=== PATIENT | female | born 1965 | race Two or more races ===

== ENCOUNTER → 2024-08-28 | Outpatient (CLI) | payer SELFPAY ==
[2024-08-28 14:25] LABS: PTHIN 4 pg/mL (11-61)
[2024-08-28 14:43] LABS: Cholesterol 181 mg/dL (<=200); High Density Lipoprotein 50 mg/dL; Low Density Lipoprotein Calc. 121 mg/dL; Thyroid Stim Hormone (TSH) 0.824 uIU/mL (0.300-4.200); Triglycerides 54 mg/dL; Very Low Density Lipoprotein 11 mg/dL (5-40); Vitamin D,25 Hydroxy 32.3 ng/mL (30-100); cholesterol:hdl ratio screen 3.65
[2024-08-28 14:50] LABS: ALB/GLOB Ratio -4.7 RATIO (0.9-2.4); AST(SGOT) 24 U/L (<=31); Alanine Aminotransfer ALT/SGPT 21 U/L (<=34); Alkaline Phosphatase 43 U/L (35-104); Anion Gap 12 (5-15); BUN 29 mg/dL (4-19); Calcium,Total 9.1 mg/dL (7.6-11.0); Chloride 101 mmol/L (98-108); Creatinine, Serum 1.54 mg/dL (0.70-1.20); EST Glomerular Filtration Rate 38 (>60); Globulin -0.9 g/dL (2.2-4.2); Protein, Total 3.2 g/dL (5.9-8.4); Sodium Level 138 mmol/L (133-145); Total Bilirubin 0.51 mg/dL (0.00-1.30)
[2024-08-28 14:55] LABS: Glucose 85 mg/dL (70-99)
[2024-09-01 12:08] LABS: Vitamin D 1,25-Dihydroxy 52.6 pg/mL (24.8-81.5)
== END | disposition home or self-care (01) ==
LOC: LAB 12:32
PROVIDERS: Referring Provider Internal Medicine Endocrinology, Diabetes & Metabolism; Visit Provider Internal Medicine Endocrinology, Diabetes & Metabolism
DX: E89.0 Postprocedural hypothyroidism (principal); E11.22 Type 2 diabetes mellitus with diabetic chronic kidney disease; N18.32 Chronic kidney disease, stage 3b; E89.2 Postprocedural hypoparathyroidism; E78.2 Mixed hyperlipidemia
CPT/HCPCS: 36415; 80053; 80061; 82306; 82652; 83970; 84439; 84443